=== PATIENT | female | born 1950 | race Caucasian/White ===

== ENCOUNTER → 2021-05-21 | Outpatient (CLI) | payer MEDICARE, OTHER ==
[~2021-05-21] MED LIST: ACET-683 PO; AMLO10TA PO; ASPI81TA86 PO; BISO10TA14 PO; COLC0.6T47 PO; CYCL-707 PO; D-101000; HYDR-3490 PO; LEVO150T7; LIDOCAINE 1% MDV 20ML VIAL As Ordered ONE; LISI-898 PO; MULTCAP PO; NUCY75TA11 PO; PRED10TA2 PO; SERT-138; SIMV20TA22 PO; SYNT175T2 PO
[2021-05-21 09:55] VITALS: BP 197/95
[2021-05-21 10:19] LABS: BASO # 0.1 10^3/uL (0.0-0.2); BASO % 0.7 % (0.0-1.0); EOS # 0.3 10^3/uL (0.0-0.5); EOS % 4.2 % (0.0-3.0); HEMATOCRIT 47.6 % (36.0-47.0); HEMOGLOBIN 15.3 g/dl (12.0-15.5); LYMPH # 3.1 10^3/uL (1.5-5.0); LYMPH % 39.7 % (24.0-44.0); MEAN CORPUSCULAR HEMOGLOBIN 30.1 pg (27.0-33.0); MEAN CORPUSCULAR HGB CONC 32.1 g/dl (32.0-36.5); MEAN CORPUSCULAR VOLUME 93.5 fl (80.0-96.0); MONO # 0.7 10^3/uL (0.0-0.8); MONO % 8.7 % (2.0-8.0); NEUTROPHILS # 3.6 10^3/uL (1.5-8.5); NEUTROPHILS % 46.4 % (36.0-66.0); PLATELET COUNT, AUTOMATED 277 10^3/uL (150-450); RED BLOOD COUNT 5.09 10^6/uL (4.00-5.40); WHITE BLOOD COUNT 7.7 10^3/uL (4.0-10.0)
== END ==
LOC: M IRPRO 09:31
PROVIDERS: ATTEND Specialist
DX: D47.2 Monoclonal gammopathy (principal); Z53.8 Procedure and treatment not carried out for other reasons

== ENCOUNTER → 2021-06-17 | Outpatient (CLI) | payer MEDICARE, OTHER ==
[~2021-06-17] MED LIST changes: +ALLO100T PO; +AMLO1TAB25 PO; +ECOT81TA5 PO; -LEVO150T7; +LEVO150T7 PO; +MULT-90 PO; -SERT-138; +SERT-138 PO; +ZOLO100T PO
[2021-06-17 09:21] LABS: BASO # 0.1 10^3/uL (0.0-0.2); BASO % 0.7 % (0.0-1.0); EOS # 0.3 10^3/uL (0.0-0.5); EOS % 3.8 % (0.0-3.0); HEMATOCRIT 45.2 % (36.0-47.0); HEMOGLOBIN 14.7 g/dl (12.0-15.5); LYMPH # 2.4 10^3/uL (1.5-5.0); LYMPH % 32.3 % (24.0-44.0); MEAN CORPUSCULAR HEMOGLOBIN 30.1 pg (27.0-33.0); MEAN CORPUSCULAR HGB CONC 32.5 g/dl (32.0-36.5); MEAN CORPUSCULAR VOLUME 92.6 fl (80.0-96.0); MONO # 0.7 10^3/uL (0.0-0.8); MONO % 9.6 % (2.0-8.0); NEUTROPHILS # 3.9 10^3/uL (1.5-8.5); NEUTROPHILS % 53.3 % (36.0-66.0); PLATELET COUNT, AUTOMATED 266 10^3/uL (150-450); RED BLOOD COUNT 4.88 10^6/uL (4.00-5.40); WHITE BLOOD COUNT 7.3 10^3/uL (4.0-10.0)
[2021-06-17 09:35] LABS: INR 1.09; PROTHROMBIN TIME 14.6 SECONDS (12.7-14.5)
[2021-06-17 09:36] LABS: PARTIAL THROMBOPLASTIN TIME 30.1 SECONDS (25.9-37.0)
[2021-06-17 10:20] VITALS: BP 107/55
--- NOTE | 2021-06-17 16:03 | REP ---
INDICATION: MONOCLONAL GAMMOPATHY, MYELOMA. COMPARISON: None. TECHNIQUE: Formed under the direct supervision of Dr. Bernstein. The risks and benefits of the procedure were explained to the patient and informed consent was obtained. The left iliac bone was localized using CT guidance. 8 mL of 1% lidocaine was used as a local anesthetic. Using CT guidance an 11 gauge bone biopsy system was inserted and advanced into the iliac bone. 10 mL of marrow fluid was withdrawn. One core biopsy sample was then obtained. The patient tolerated the procedure well and there were no immediate complications. After the appropriate amount to monitor convalescence the patient was discharged from the department. Estimated blood loss: Less than 1 mL. FINDINGS: None IMPRESSION: CT-guided left iliac bone marrow biopsy. <Electronically signed by Mushtaq Magana > 06/17/21 1541 <Electronically signed by Jay Bernstein > 06/17/21 1600
== END ==
LOC: M IRPRO 08:24
PROVIDERS: ATTEND Specialist
DX: C90.00 Multiple myeloma not having achieved remission (principal); D47.2 Monoclonal gammopathy

== ENCOUNTER → 2022-03-02 | Outpatient (REF) | payer MEDICARE, OTHER ==
[~2022-03-02] MED LIST changes: -LIDOCAINE 1% MDV 20ML VIAL As Ordered ONE; -LISI-898 PO; +LISI5TAB11 PO
== END ==
LOC: M LAB REF 16:46
PROVIDERS: ATTEND Internal Medicine Nephrology
DX: E83.52 Hypercalcemia (principal)

== ENCOUNTER → 2024-03-14 | Outpatient (CLI) | payer MEDICARE, OTHER | LOC: M RAD 14:09 | PROVIDERS: ATTEND Internal Medicine Critical Care Medicine | DX: J18.9 Pneumonia, unspecified organism (principal) ==